=== PATIENT | female | born 1990 | race Two or more races ===

== ENCOUNTER 2017-07-13 12:45 | Emergency (ER) | payer MEDICAID ==
[~2017-07-13] VITALS: Ht 152.4 cm; Wt 57.2 kg
[2017-07-13] MEDS ORDERED: ALBUTEROL/IPRATROPIUM 2.5MG/0.5MG, 3 ML NPPB ONE (13:30)
[2017-07-13] MEDS ORDERED: ALBUTEROL/IPRATROPIUM 2.5MG/0.5MG, 3 ML ONE (13:47)
[2017-07-13] MEDS ORDERED: DEXAMETHASONE 4 MG/ML, 5ML ONE (14:51)
[2017-07-13 14:53] VITALS: BP 99/61
[2017-07-13] MEDS ORDERED: DEXAMETHASONE 4 MG/ML, 1ML IM ONE (15:00)
== END 2017-07-13 15:03 | disposition home or self-care (01) ==
LOC: ED 14:20
DX: J45.41 Moderate persistent asthma with (acute) exacerbation (principal); M79.1 Myalgia
CPT/HCPCS: 71010; 94640; 96372; 99283; J1100; J7620